=== PATIENT | female | born 1980 | race Caucasian/White ===

== ENCOUNTER 2021-01-14 18:39 | Emergency (ER) | payer OTHER ==
[~2021-01-14] VITALS: Ht 167.6 cm; Wt 73.3 kg
[2021-01-14] MEDS ORDERED: MORPHINE SULFATE 4 MG/ML DISP.SYRIN. IV ONE (19:15)
[2021-01-14] MEDS ORDERED: ONDANSETRON PF 4 MG/2 ML VIAL. IVP ONE (19:15)
[2021-01-14] MEDS ORDERED: IV NORMAL SALINE 1,000ML 1,000 ML IV ONE (19:15)
--- NOTE | 2021-01-14 19:22 | PHYS DOC ---
Past History Past Medical History: No Pertinent History (KAREN BRIZUELA APRN) Past Surgical History: Hysterectomy (KAREN BRIZUELA APRN) Alcohol Use: None (KAREN BRIZUELA APRN) General Adult EDM: Chief Complaint: ABDOMINAL PAIN HPI: HPI: Patient is a 40-year-old female who presents with right upper quadrant pain for the last couple of days. Patient states that pain radiates into her right shoulder and back. Patient is reporting pain is a burning, constant. Patient has some nausea but denies vomiting. Patient states that she has gone back and forth during constipation and diarrhea. Patient reports that her poop has been a yellowish color. Patient states that recently she has had a history of migrai rupa and has been seeing her PCP. Patient denies taking anything for pain prior to arrival. "I feel like I wish I could just burp or poop and I would felt better". Patient has a history of GERD. Partial hysterectomy. (KAREN BRIZUELA APRN) Review of Systems: Review of Systems: Constitutional: Denies fever or chills Eyes: Denies change in visual acuity HENT: Denies nasal congestion or sore throat Respiratory: Denies cough or shortness of breath Cardiovascular: Denies chest pain or edema GI: Reports right upper quadrant abdominal pain, nausea, diarrhea, constipation. Denies vomiting. : Denies dysuria Musculoskeletal: Reports back pain denies joint pain Integument: Denies rash Neurologic: Denies headache, focal weakness or sensory changes Endocrine: Denies polyuria or polydipsia Lymphatic: Denies swollen glands Psychiatric: Denies depression or anxiety (KAREN BRIZUELA APRN) Current Medications: Current Meds: Current Medications Medications (Trade) Dose Ordered Sig/Shana Start Time Stop Time Status Last Admin Dose Admin Morphine Sulfate (Morphine 4mg Syringe) 4 mg 1X ONCE 01/14/21 19:15 01/14/21 19:17 DC Ondansetron HCl (Zofran) 4 mg 1X ONCE 01/14/21 19:15 01/14/21 19:17 DC Sodium Chloride 1,000 ml @ 1,000 mls/hr 1X ONCE 01/14/21 19:15 01/14/21 20:14 (KAREN BRIZUELA APRN) Allergies: Allergies: Allergies Coded Allergies Type Severity Reaction Last Updated Verified Tetracyclines Allergy Unknown 01/14/21 Yes clindamycin Allergy Unknown 01/14/21 Yes (KAREN BRIZUELA APRN) Physical Exam: PE: Constitutional: Well developed, well nourished, no acute distress, non-toxic appearance. [] HENT: Normocephalic, atraumatic, bilateral external ears normal, oropharynx moist, no oral exudates, nose normal. [] Eyes: PERRLA, EOMI, conjunctiva normal, no discharge. [] Neck: Normal range of motion, no tenderness, supple, no stridor. [] Cardiovascular:Heart rate regular rhythm, no murmur [] Lungs & Thorax: Bilateral breath sounds clear to auscultation [] Abdomen: Bowel sounds normal, soft, right upper quadrant tenderness Skin: Warm, dry, no erythema, no rash. [] Back: Right upper tenderness, no CVA tenderness. [] Extremities: No tenderness, no cyanosis, no clubbing, ROM intact, no edema. [] Neurologic: Alert and oriented X 3, normal motor function, normal sensory funct ion, no focal deficits noted. [] Psychologic: Affect normal, judgement normal, mood normal. [] (KAREN BRIZUELA APRN) Current Patient Data: Vital Signs: Vital Signs Date Time Temp Pulse Resp B/P (MAP) Pulse Ox O2 Delivery O2 Flow Rate FiO2 01/14/21 19:00 98.0 116 20 131/72 (91) 99 (KAREN BRIZUELA APRN) EKG: EKG: [] Normal sinus rhythm. Heart rate 86 bpm. (KAREN BRIZUELA APRN) Radiology/Procedures: Radiology/Procedures: [] (KAREN BRIZUELA APRN) Radiology/Procedures: Exam: CT of abdomen and pelvis without contrast INDICATION: Abdominal pain TECHNIQUE: Sequential axial images through the abdomen and pelvis obtained without IV contrast. Sagittal and coronal reformatted images were reconstructed from the axial data and reviewed. Comparisons: None FINDINGS: Heart size is normal. No pericardial effusion. Visualized lung bases are clear. No pleural effusion. Evaluation of solid organs is limited secondary to noncontrast technique. Liver, spleen, pancreas, gallbladder and adrenals are unremarkable. No perinephric inflammation or hydronephrosis. No renal or ureteral calculi are identified. Bladder is distended and appears thin-walled. Uterus is absent. No abnormal adnexal mass. Large and small bowel are unremarkable. Appendix is normal. No free intra- abdominal air or fluid. No obstruction. Abdominal aorta has a normal course and caliber. No enlarged intra-abdominal lymph nodes are identified. No suspicious osseous lesions or acute fractures. IMPRESSION: No acute process identified in the abdomen or pelvis. Exposure: One or more of the following in the visualized dose reduction techniques were utilized for this examination: 1. Automated exposure control 2. Adjustment of the MA and/or KV according to patient size 3. Use of iterative of reconstructive technique Electronically signed by: Levi Cruz MD (01/14/2021 8:28 PM) NOEL Exam: Ultrasound abdomen limited Indication: Right upper quadrant pain Technique: Real-time grayscale and color Doppler images of the right upper quadrant were obtained by the department corner brace block machine operator. Comparisons: None FINDINGS: Liver contour is normal. There is a 1.5 cm hyperechoic lesion within the right hepatic lobe. Hepatopedal flow noted in the portal vein. Gallbladder is distended and appears thin-walled. Common bile duct measures 3 mm in diameter. Right kidney measures 11.27 m in length. No hydronephrosis. Visualized portions aorta and IVC are unremarkable. IMPRESSION: 1. No sonographic evidence for acute cholecystitis. 2. No right-sided hydronephrosis. 3. A 1.5 cm hyperechoic lesion in the right hepatic lobe, likely represents hemangioma. Further evaluation with nonemergent/outpatient liver protocol CT or MRI is recommended. Electronically signed by: Levi Cruz MD (01/14/2021 10:11 PM) NOEL Exam: Chest one view INDICATION: Abdominal pain TECHNIQUE: Frontal view of the chest Comparisons: None FINDINGS: The cardiomediastinal silhouette and pulmonary vessels are within normal limits. The lung and pleural spaces are clear. IMPRESSION: No acute cardiopulmonary process. Electronically signed by: Levi Cruz MD (01/14/2021 9:07 PM) [facility] (ZORAIDA ALMAZAN MD) Heart Score: C/O Chest Pain: No Risk Factors: Risk Factors: DM, Current or recent (<one month) smoker, HTN, HLP, family history of CAD, obesity. Risk Scores: Score 0 - 3: 2.5% MACE over next 6 weeks - Discharge Home Score 4 - 6: 20.3% MACE over next 6 weeks - Admit for Clinical Observation Score 7 - 10: 72.7% MACE over next 6 weeks - Early Invasive Strategies (KAREN BRIZUELA APRN) C/O Chest Pain: No (ZORAIDA ALMAZAN MD) Course & Med Decision Making: Course & Med Decision Making Pertinent Labs and Imaging studies reviewed. (See chart for details) Transfer of patient care to Dr. Almazan. (KAREN BRIZUELA APRN) Course & Med Decision Making Patient care assumed from day team. Laboratory analysis and imaging pending. CT with no acute findings. Ultrasound of the right upper quadrant with no acute findings. Laboratory analysis not concerning. Urinalysis not concerning. Patient pain and nausea controlled. Discussed all findings with patient. Advised to call primary care physician first thing in the morning to discuss ED visit and set up a follow-up as soon as she can. Gave strict return precautions to the ED. Patient grateful, verbalized understanding and agreed with plan of discharge. (ZORAIDA ALMAZAN MD) Dragon Disclaimer: Dragon Disclaimer: This electronic medical record was generated, in whole or in part, using a voice recognition dictation system. (KAREN BRIZUELA APRN) Departure Departure: Impression: Primary Impression: Abdominal pain Disposition: 01 DC HOME SELF CARE/HOMELESS Condition: GOOD Referrals: DAYO COSME MD (PCP) Patient Instructions: Abdominal Pain (Nonspecific) Additional Instructions: Please read all of the attached information. Over the next couple of days eat a light diet as discussed. Please call your primary care physician first thing in the morning to discuss your ED visit and set up a follow-up as soon as you can. Please come back to the emergency department immediately with new or concerning symptoms. KAREN BRIZUELA APRN Jan 14, 2021 19:22 ZORAIDA ALMAZAN MD Jan 14, 2021 22:25
[2021-01-14 20:08] LABS: BASO # 0.1 x10^3/uL (0.0-0.2); BASO % 1 % (0-3); EOS # 0.3 x10^3/uL (0.0-0.7); EOS % 3 % (0-3); HEMATOCRIT 46.7 % (36.0-47.0); HEMOGLOBIN 15.7 g/dL (12.0-15.5); LYMPH # 3.1 x10^3/uL (1.0-4.8); LYMPH % 34 % (24-48); MEAN CORPUSCULAR HEMOGLOBIN 32 pg (25-35); MEAN CORPUSCULAR HGB CONC 34 g/dL (31-37); MEAN CORPUSCULAR VOLUME 95 fL (79-100); MONO # 0.8 x10^3/uL (0.0-1.1); MONO % 9 % (0-9); NEUT # 4.7 x10^3uL (1.8-7.7); NEUT % 53 % (31-73); PLATELET COUNT 350 x10^3/uL (140-400); RED BLOOD COUNT 4.91 x10^6/uL (3.50-5.40); RED CELL DISTRIBUTION WIDTH 12.5 % (11.5-14.5)
[2021-01-14 20:15] LABS: ALBUMIN 4.2 g/dL (3.4-5.0); ALBUMIN/GLOBULIN RATIO 1.1 (1.0-1.7); CALCIUM 9.2 mg/dL (8.5-10.1); CREATININE 0.9 mg/dL (0.6-1.0); GFR 69.7; TOTAL BILIRUBIN 0.2 mg/dL (0.2-1.0); TOTAL PROTEIN 7.9 g/dL (6.4-8.2)
[2021-01-14 20:16] LABS: DIRECT BILIRUBIN 0.1 mg/dL (0.0-0.2); POTASSIUM 4.1 mmol/L (3.5-5.1)
--- NOTE | 2021-01-14 20:30 | RAD ---
Exam: CT of abdomen and pelvis without contrast INDICATION: Abdominal pain TECHNIQUE: Sequential axial images through the abdomen and pelvis obtained without IV contrast. Sagit afshin and coronal reformatted images were reconstructed from the axial data and reviewed. Comparisons: None FINDINGS: Heart size is normal. No pericardial effusion. Visualized lung bases are clear. No pleural effusion. Evaluation of solid organs is limited secondary to noncontrast technique. Liver, spleen, pancreas, gallbladder and adrenals are unremarkable. No perinephric inflammation or hydronephrosis. No renal or ureteral calculi are identified. Bladder is distended and appears thin-walled. Uterus is absent. No abnormal adnexal mass. Large and small bowel are unremarkable. Appendix is normal. No free intra-abdominal air or fluid. No obstruction. Abdominal aorta has a normal course and caliber. No enlarged intra-abdominal lymph nodes are identified. No suspicious osseous lesions or acute fractures. IMPRESSION: No acute process identified in the abdomen or pelvis. Exposure: One or more of the following in the visualized dose reduction techniques were utilized for this examination: 1. Automated exposure control 2. Adjustment of the MA and/or KV according to patient size 3. Use of iterative of reconstructive technique Electronically signed by: Levi Cruz MD (01/14/2021 8:28 PM) [facility]
--- NOTE | 2021-01-14 21:09 | RAD ---
Exam: Chest one view INDICATION: Abdominal pain TECHNIQUE: Frontal view of the chest Comparisons: None FINDINGS: The cardiomediastinal silhouette and pulmonary vessels are within normal limits. The lung and pleural spaces are clear. IMPRESSION: No acute cardiopulmonary process. Electronically signed by: Levi Cruz MD (01/14/2021 9:07 PM) NOEL
--- NOTE | 2021-01-14 22:13 | RAD ---
Exam: Ultrasound abdomen limited Indication: Right upper quadrant pain Technique: Real-time grayscale and color Doppler images of the right upper quadrant were obtained by the department human resources director. Comparisons: None FINDINGS: Liver contour is normal. There is a 1.5 cm hyperechoic lesion within the right hepatic lobe. Hepatope dalia flow noted in the portal vein. Gallbladder is distended and appears thin-walled. Common bile duct measures 3 mm in diameter. Right kidney measures 11.27 m in length. No hydronephrosis. Visualized portions aorta and IVC are unremarkable. IMPRESSION: 1. No sonographic evidence for acute cholecystitis. 2. No right-sided hydronephrosis. 3. A 1.5 cm hyperechoic lesion in the right hepatic lobe, likely represents hemangioma. Further eval uation with nonemergent/outpatient liver protocol CT or MRI is recommended. Electronically signed by: Levi Cruz MD (01/14/2021 10:11 PM) NOEL
[2021-01-14] MEDS ORDERED: KETOROLAC 15 MG/ML VIAL. IVP ONE (22:30)
[2021-01-14 23:04] LABS: BACTERIA,URINE 0 /HPF (0-FEW); BILIRUBIN,URINE NEG (NEG); CLARITY,URINE CLEAR; COLOR,URINE COLORLESS; GLUCOSE,URINE NEG (NEG); NITRITE,URINE NEG (NEG); RBC,URINE 0 /HPF (0-2); SQUAMOUS EPITHELIAL CELL,UR MOD /LPF; UROBILINOGEN,URINE 0.2 mg/dL (0.2 mg/dL); WBC,URINE 0 /HPF (0-4)
[2021-01-14 23:21] VITALS: BP 104/62
--- NOTE | 2021-01-15 00:26 | EKG ---
[address] [address] Test Date: 2021-01-14 Test Time: 19:29:56 Pat Name: LEOOPLDO HOLLOWAY Department: Room: Gender: F [employer] Manager: MARYBETH : 1980 Requested By: KAREN BRIZUELA Order Number: [id number] Reading MD: Measurements Intervals [place] Rate: 86 P: 61 OK: 188 QRS: 91 QRSD: 72 T: 29 QT: 368 QTc: 443 Interpretive Statements SINUS RHYTHM RIGHTWARD AXIS LOW LIMB LEAD VOLTAGE NO SPECIFIC ECG ABNORMALITIES RI6.02 No previous ECG available for comparison
== END 2021-01-14 23:36 | disposition home or self-care (01) ==
LOC: ER 18:39
DX: R10.11 Right upper quadrant pain (principal); R11.0 Nausea; R19.7 Diarrhea, unspecified; K59.00 Constipation, unspecified; Z90.710 Acquired absence of both cervix and uterus; Z88.1 Allergy status to other antibiotic agents
CPT/HCPCS: 36415; 71045; 74176; 76705; 80053; 81001; 82248; 83690; 85025; 93005; 96361; 96374; 96375; 99285; J1885; J2270; J2405; J7030